=== PATIENT | male | born 1985 | race Caucasian/White ===

== ENCOUNTER 2024-01-12 06:31 | Emergency (ER) | payer OTHER ==
[~2024-01-12] VITALS: Ht 172.7 cm; Wt 70.3 kg
[2024-01-12 06:42] VITALS: TEMP 98.1
[2024-01-12] MEDS ORDERED: ONDANSETRON HCL/PF 4 MG/2 ML VIAL ONE (06:45)
[2024-01-12] MEDS: IV NS 0.9% 1,000 ML BAG IV ONE (06:53)
[2024-01-12] MEDS: ONDANSETRON HCL/PF 4 MG/2 ML VIAL IVP ONE (06:54)
[2024-01-12 07:12] LABS: BASOPHILS % (AUTO) 0.1 % (0.0-2.0); HEMATOCRIT 45 % (39-51); HEMOGLOBIN 15.1 g/dL (13.5-17.5); LYMPHOCYTES # (AUTO) 0.7 K/uL (0.8-4.8); LYMPHOCYTES % (AUTO) 8.4 % (20.0-44.0); MEAN CORPUSCULAR HEMOGLOBIN 30 PG (26.0-33.0); MEAN CORPUSCULAR HGB CONC 33 g/dl (31.0-36.0); MEAN CORPUSCULAR VOLUME 89 fL (80-96); MONOCYTES # (AUTO) 0.3 K/uL (0.1-1.30); NEUTROPHILS # (AUTO) 7.4 K/uL (1.8-8.9); NEUTROPHILS % (AUTO) 87.5 % (43.0-81.0); PLATELET COUNT (AUTO) 204 K/uL (150-450); RED BLOOD CELL COUNT(AUTO) 5.09 MIL/uL (4.5-6.0); RED CELL DISTRIBUTION WIDTH 13.3 % (11.5-15.0); WHITE BLOOD COUNT (AUTO) 8.5 K/uL (4.3-11.0)
[2024-01-12 07:13] LABS: CALCIUM, SERUM 10.1 mg/dL (8.5-10.1); CREATININE 1.2 mg/dL (0.6-1.3); POTASSIUM 3.7 mmol/L (3.5-5.1)
[2024-01-12 07:19] LABS: ALBUMIN 4.7 g/dL (3.4-5.0); BILIRUBIN,DIRECT 0.2 mg/dL (0.0-0.2); BILIRUBIN,TOTAL 1.1 mg/dL (0.2-1.0); TOTAL PROTEIN, SERUM 8.3 g/dL (6.4-8.2)
[2024-01-12 07:24] LABS: APPEARANCE,URINE CLEAR (CLEAR); BILIRUBIN,URINE 1+ (NEGATIVE); BLOOD, URINE 1+ Ery/uL (NEGATIVE); COLOR,URINE DARK YELLOW (YELLOW); KETONES,URINE 2+ mg/dL (NEGATIVE); LEUKOCYTE ESTERASE ,URINE NEGATIVE (NEGATIVE); NITRITE, URINE NEGATIVE (NEGATIVE); PROTEIN,URINE 1+ mg/dl (NEGATIVE); UGLUCOSE NEGATIVE (NEGATIVE); UROBILINOGEN,URINE 0.2 EU/dL (0.2)
[2024-01-12 07:35] LABS: ADD URINE CULTURE NO; BACTERIA,URINE Rare /HPF (None Seen); SQUAMOUS EPITHELIAL CELL,UR Few /HPF (None Seen)
[2024-01-12] MEDS ORDERED: ONDA4TAB5 PO ×2 (08:07→20:15)
[2024-01-12] MEDS ORDERED: diphenhydrAMINE HCL 50 MG/ML VIAL ONE (09:20)
[2024-01-12] MEDS ORDERED: METOCLOPRAMIDE HCL 10 MG/2 ML VIAL ONE (09:21)
[2024-01-12] MEDS: METOCLOPRAMIDE HCL 10 MG/2 ML VIAL IV ONE (09:23)
[2024-01-12] MEDS: diphenhydrAMINE HCL 50 MG/ML VIAL IV ONE (09:29)
[2024-01-12 09:49] VITALS: BP 124/68; O2SAT 99
== END 2024-01-12 09:50 | disposition home or self-care (01) ==
LOC: ER 06:35
DX: R11.15 Cyclical vomiting syndrome unrelated to migraine (principal); F14.10 Cocaine abuse, uncomplicated; Z60.2 Problems related to living alone
CPT/HCPCS: 99284; 96374; 96375; 96361; 85025; 80048; 83690; 80076; 81001; 36415; J1200; J2765; J2405; J7030